=== PATIENT | female | born 1965 | race Caucasian/White ===

== ENCOUNTER → 2017-12-02 | Outpatient (CLI) | payer BC ==
--- NOTE | 2017-12-02 14:12 | US ---
EXAMINATION TYPE: US abdomen complete DATE OF EXAM: 12/02/2017 COMPARISON: US CLINICAL HISTORY: R10.9 Abdominal pain. pain between shoulder blades EXAM MEASUREMENTS: Liver Length: 13.7 cm Gallbladder Wall: 0.2 cm CBD: 0.5 cm Spleen: 12.0 cm Right Kidney: 12.8 x 5.6 x 4.8 cm Left Kidney: 12.8 x 6.1 x 6.2 cm Pancreas: visualized portions wnl Liver: Overall the liver is difficult to penetrate with increased echotexture and diminished visuali zation of the portal triads. This most commonly relates to hepatic steatosis and limits evaluation fo r underlying hepatic masses. No discrete hepatic masses seen on today's examination. Gallbladder: No stones seen Evidence for sonographic Luong's sign: No CBD: wnl Spleen: wnl Right Kidney: No hydronephrosis or masses seen Left Kidney: Solid left mid pole mass, measures 4.0 x 4.6 x 4.5 cm. Upper IVC: wnl Abd Aorta: wnl The intrahepatic portion of the IVC and proximal abdominal aorta are within normal limits. There is no evidence of cholelithiasis. Common bile duct is unremarkable. The visualized portions of the hernandez creas are homogenous. The spleen is unremarkable. Kidneys are symmetric and free of hydronephrosis. IMPRESSION: 1. There is a suspicious solid left renal mass measuring up to 4.6 cm within the midpole which should be considered neoplasm until proven otherwise. Further characterization with three-phase enhanced CT is recommended. 2. No sonographic evidence of cholelithiasis or acute cholecystitis. 3. Findings most commonly related to hepatic steatosis as seen on the prior of 2010. A Yellow level critical message alert has been initiated for Bharat Pierre MD via the [employer] Critical Results System on 12/02/2017 2:09 PM. This message alert has been sent to Bharat Pierre MD via the preferences provided by the clinician for the receipt of Radiology Critical Findings. Message ID [id number].
== END | disposition home or self-care (01) ==
LOC: RADUSWWP 13:15
PROVIDERS: ATTEND Internal Medicine Geriatric Medicine
DX: R10.9 Unspecified abdominal pain (principal)
CPT/HCPCS: 76700

== ENCOUNTER → 2017-12-05 | Outpatient (CLI) | payer BC ==
--- NOTE | 2017-12-05 23:00 | CT ---
EXAMINATION TYPE: CT abdomen wo/w con DATE OF EXAM: 12/05/2017 HISTORY: Abnormal US. CT DLP: 1503mGycm Automated Exposure Control for Dose Reduction was Utilized. CONTRAST: CT scan of the abdomen is performed with oral and without and with IV Contrast, patient injected with 100 mL of Isovue 300. COMPARISON: Complete abdominal ultrasound December 02, 2017. FINDINGS: LUNG BASES: No significant abnormality is appreciated. LIVER/GB: Liver is felt within normal limits on CT. PANCREAS: No significant abnormality is seen. SPLEEN: No significant abnormality is seen. ADRENALS: No significant abnormality is seen. KIDNEYS: Noncontrast images show no renal calculi bilaterally. Contrast images show symmetric cortica l medullary uptake and excretion without evidence of concerning solid or cystic renal mass or hydrone phrosis bilaterally. There is some lobulation or prominent dromedary hump in the left kidney likely m imicking labeled mass mid pole level on images saved BOWEL: Oral contrast was not extends past debris-filled stomach making evaluation of both suboptimal. There is distended stomach. There is no suspicious small or large bowel dilatation. LYMPH NODES: No greater than 1cm abdominal lymph nodes are appreciated. OSSEOUS STRUCTURES: There is moderate multilevel left lateral spurring in the visualized thoracic spi ne. OTHER: There is mild calcified plaque of the aorta extending into pelvic branch vessels. IMPRESSION: No suspicious renal mass with particular attention to midpole of the left kidney at the a memo of ultrasound concern. Possible gastroparesis otherwise unremarkable study, correlate clinically.
== END | disposition home or self-care (01) ==
LOC: RADCTMAIN 17:58
PROVIDERS: ATTEND Internal Medicine Geriatric Medicine
DX: R93.429 Abnormal radiologic findings on diagnostic imaging of unspecified kidney (principal)
CPT/HCPCS: 82565; 84520; 74170; 36415; Q9967